=== PATIENT | male | born 1970 | race Caucasian/White ===

== ENCOUNTER 2017-03-20 02:11 | Emergency (ER) | payer SELFPAY ==
[2017-03-20] VITALS (9 sets, daily range): BP systolic 108–199; BP diastolic 70–110; PULSE 78–104; RESP 16–18; TEMP 97.6; O2SAT 93–99
[~2017-03-20] VITALS: Ht 177.8 cm; Wt 90.4 kg
[~2017-03-20 02:11] MED LIST: PENI500T PO; ZOFR4TAB3 SL
[2017-03-20] MEDS ORDERED: METH10TA PO (02:53)
[2017-03-20] MEDS ORDERED: cloNIDine HCL 0.1 MG TAB PO ONE (03:30)
[2017-03-20] MEDS ORDERED: METOPROLOL TARTRATE 5 MG/5 ML VIAL IV PUSH ONE (03:30)
--- NOTE | 2017-03-20 03:36 | PD ---
HPI Chief Complaint: Hypertension Time Seen by Provider: 02:24 Travel History International Travel<30 days: No Contact w/Intl Traveler<30days: No Traveled to known affect area: No History of Present Illness HPI Patient has a hypertension for the last few days he's noticed he had a bad headache checked his pressure was close to 200/110. He had a hypertensive diagnosis in the past for which she was taking lisinopril and hydrochlorothiazide. He has not taken that for many years. He has not checked his pressure and a long time. In the last few days he's taking his father's lisinopril and his father's hydrochlorothiazide. He has a headache but denies chest pain. Denies short of breath. Denies any urinary changes again this is been a headache off and on for last 2 days with hypertension for the last 2 days took his father's lisinopril without relief of his symptoms is symptoms still persist in the ER. He has not seen another doctor in years. 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) Allergies-Medications (Allergen,Severity, Reaction): Coded Allergies: No Known Allergies (Unverified Adverse Reaction, Unknown, 03/20/17) Reported Meds & Prescriptions Reported Meds & Active Scripts Active Lisinopril 20 Mg Tab 20 Mg PO DAILY Clonidine (Clonidine HCl) 0.1 Mg Tab 0.1 Mg PO BID Reported Methadone (Methadone HCl) 10 Mg Tab 100 Mg PO DAILY Review of Systems Eyes: No: Diploplia, Blurred Vision, Photophobia, Drainage, Redness, Foreign Body Sensation, Pain, Tearing, Blind Spots, Visual changes, Blindness, Other HENT: Positive: Headaches Respiratory: No: Shortness of Breath Gastrointestinal: No: Abdominal Pain Genitourinary: No: Urgency, Frequency, Dysuria, Nocturia, Hematuria, Decreased Urinary Output, Oliguria, Hesitancy, Dribbling, Incontinence, Pelvic Pain, Flank Pain, Dyspareunia, Discharge, Dysmenorrhea, Menorrhagia, Metorrhagia, Vaginal Bleeding, Other Musculoskeletal: No: Weakness Neurologic: No: Weakness Physical Exam Narrative GENERAL: redness to skin possible sun burn AOX3 SKIN: Warm and dry. HEAD: Atraumatic. Normocephalic. EYES: Pupils equal and round. No scleral icterus. No injection or drainage. ENT: No nasal bleeding or discharge. Mucous membranes pink and moist. NECK: Trachea midline. No JVD. CARDIOVASCULAR: Regular rate and rhythm. BP was 183/103 now 136/90 RESPIRATORY: No accessory muscle use. Clear to auscultation. Breath sounds equal bilaterally. GASTROINTESTINAL: Abdomen soft, non-tender, nondistended. Hepatic and splenic margins not palpable. MUSCULOSKELETAL: Extremities without clubbing, cyanosis, or edema. No obvious deformities. NEUROLOGICAL: Awake and alert. No obvious cranial nerve deficits. Motor grossly within normal limits. Five out of 5 muscle strength in the arms and legs. Normal speech. PSYCHIATRIC: Appropriate mood and affect; insight and judgment normal. Data Data Last Documented VS Vital Signs Date Time Temp Pulse Resp B/P (MAP) Pulse Ox O2 Delivery O2 Flow Rate FiO2 03/20/17 04:55 81 16 108/70 (83) 95 03/20/17 04:09 Room Air 03/20/17 02:16 97.6 Orders Orders Clonidine (Catapres) (03/20/17 03:30) Metoprolol Tartrate Inj (Lopressor Inj) (03/20/17 03:30) Complete Blood Count With Diff (03/20/17 03:20) Comprehensive Metabolic Panel (03/20/17 03:20) Electrocardiogram (03/20/17 ) Troponin I (03/20/17 03:20) Ed Discharge Order (03/20/17 04:56) Labs Laboratory Tests Test 03/20/17 03:20 White Blood Count 10.5 TH/MM3 Red Blood Count 5.38 MIL/MM3 Hemoglobin 16.0 GM/DL Hematocrit 47.3 % Mean Corpuscular Volume 88.0 FL Mean Corpuscular Hemoglobin 29.8 PG Mean Corpuscular Hemoglobin Concent 33.8 % Red Cell Distribution Width 12.8 % Platelet Count 221 TH/MM3 Mean Platelet Volume 9.3 FL Neutrophils (%) (Auto) 80.7 % Lymphocytes (%) (Auto) 13.3 % Monocytes (%) (Auto) 5.1 % Eosinophils (%) (Auto) 0.7 % Basophils (%) (Auto) 0.2 % Neutrophils # (Auto) 8.5 TH/MM3 Lymphocytes # (Auto) 1.4 TH/MM3 Monocytes # (Auto) 0.5 TH/MM3 Eosinophils # (Auto) 0.1 TH/MM3 Basophils # (Auto) 0.0 TH/MM3 CBC Comment DIFF FINAL Differential Comment Blood Urea Nitrogen 8 MG/DL Creatinine 0.96 MG/DL Random Glucose 140 MG/DL Total Protein 7.8 GM/DL Albumin 4.4 GM/DL Calcium Level 8.9 MG/DL Alkaline Phosphatase 57 U/L Aspartate Amino Transf (AST/SGOT) 23 U/L Alanine Aminotransferase (ALT/SGPT) 35 U/L Total Bilirubin 0.7 MG/DL Sodium Level 137 MEQ/L Potassium Level 3.0 MEQ/L Chloride Level 98 MEQ/L Carbon Dioxide Level 28.2 MEQ/L Anion Gap 11 MEQ/L Estimat Glomerular Filtration Rate 84 ML/MIN Troponin I LESS THAN 0.02 NG/ML MDM Medical Decision Making Medical Screen Exam Complete: Yes Emergency Medical Condition: Yes Interpretation(s) EKG is normal sinus rhythm at a rate of 84 Differential Diagnosis htn, vs drug induced HTN vs withdrawal HTN Narrative Course lopressor IV and Clonidine relieve the symptoms and BP normal d/c with RX for Lisinopril and Clonidine to follow up as out patient, [facility] number given to patient Diagnosis Primary Impression: Hypertension Qualified Codes: I10 - Essential (primary) hypertension Referrals: [facility] Patient Instructions: General Instructions, Hypertension (ED) Scripts Lisinopril (Lisinopril) 20 Mg Tab 20 MG PO DAILY, #30 TAB 0 Refills Prov: Nikko Polanco MD 03/20/17 Clonidine (Clonidine) 0.1 Mg Tab 0.1 MG PO BID for Blood Pressure Management, #30 TAB 0 Refills Prov: Nikko Polanco MD 03/20/17 Disposition: 01 DISCHARGE HOME Condition: Good Nikko Polanco MD Mar 20, 2017 03:36
[2017-03-20 03:39] LABS: AUTOMATED NEUTROPHIL # 8.5 TH/MM3 (1.8-7.7); BASOPHIL % 0.2 % (0.0-2.0); EOSINOPHIL # 0.1 TH/MM3 (0-0.4); EOSINOPHIL % 0.7 % (0.0-4.0); HEMATOCRIT 47.3 % (39.0-51.0); HEMO FLAGS DIFF FINAL; LYMPH % 13.3 % (9.0-44.0); LYMPHOCYTE # 1.4 TH/MM3 (1.0-4.8); MEAN CORPUSCULAR HEMOGLOBIN 29.8 PG (27.0-34.0); MEAN CORPUSCULAR HGB CONC 33.8 % (32.0-36.0); MONO % 5.1 % (0.0-8.0); NEUT % 80.7 % (16.0-70.0); PLATELET COUNT 221 TH/MM3 (150-450); RED BLOOD COUNT 5.38 MIL/MM3 (4.50-5.90); RED CELL DISTRIBUTION WIDTH 12.8 % (11.6-17.2); WHITE BLOOD COUNT 10.5 TH/MM3 (4.0-11.0)
[2017-03-20 03:48] LABS: CHLORIDE 98 MEQ/L (98-107); SODIUM (NA) 137 MEQ/L (136-145)
[2017-03-20 03:51] LABS: ANION GAP 11 MEQ/L (5-15); BICARBONATE 28.2 MEQ/L (21.0-32.0); BLOOD UREA NITROGEN 8 MG/DL (7-18)
[2017-03-20 03:54] LABS: ALT (GPT) 35 U/L (12-78); AST (GOT) 23 U/L (15-37); GLOMERULAR FILTRATION RATE 84 ML/MIN (>89)
[2017-03-20 03:56] LABS: TOTAL BILIRUBIN ADULT 0.7 MG/DL (0.2-1.0)
[2017-03-20 03:57] LABS: ALKALINE PHOSPHATASE 57 U/L (45-117)
[2017-03-20] MEDS ORDERED: CLON0.1T PO (04:44)
[2017-03-20] MEDS ORDERED: LISI-515 PO (04:44)
--- NOTE | 2017-03-20 18:35 | EKG ---
Date Performed: 03/20/2017 Time Performed: 03:38:14 PTAGE: 46 years EKG: Sinus rhythm MARKED LEFT AXIS DEVIATION ABNORMAL ECG PREVIOUS TRACING : 04/24/2002 19.33 Compared to prior tracing no significant change DOCTOR: Antoine Cárdenas Interpretating Date/Time 03/20/2017 18:33:27
== END 2017-03-20 05:02 | disposition home or self-care (01) ==
LOC: PHED 02:11
DX: I10 Essential (primary) hypertension (principal); R94.31 Abnormal electrocardiogram [ECG] [EKG]
CPT/HCPCS: 80053; 84484; 85025; 93005; 96374